=== PATIENT | male | born 1995 | race Two or more races ===

== ENCOUNTER 2021-05-30 22:46 | Emergency (ER) | payer MEDICAID ==
[~2021-05-30] VITALS: Ht 185.4 cm; Wt 79.8 kg
--- NOTE | 2021-05-30 23:07 | NUR ---
NIL X 1
[2021-05-31] MEDS ORDERED: LIDOCAINE 1%-EPI 1:100K, 20ML SQ ONE
[2021-05-31 01:07] LABS: BASOPHILS % (AUTO) 2 % (0-1); EOSINOPHILS % (AUTO) 1 % (1-7); LYMPHOCYTES % (AUTO) 30 % (22-44); MEAN CORPUSCULAR HEMOGLOBIN 29.9 pg (27.5-34.5); MEAN CORPUSCULAR HGB CONC 33.7 g/dL (33.2-36.2); MEAN PLATELET VOLUME 8.1 fL (7.4-10.4); MONOCYTES % (AUTO) 9 % (2-9); NEUTROPHILS % (AUTO) 58 % (42-75); PLATELET COUNT 255 x10^3/uL (130-400); RED BLOOD COUNT 5.75 x10^6/uL (4.38-5.82); RED CELL DISTRIBUTION WIDTH 12.4 % (9.4-14.8)
[2021-05-31 01:13] LABS: ANION GAP 13 mmol/L (5-15); CALCIUM 8.7 mg/dL (8.5-10.1); CHLORIDE 106 mmol/L (98-107); CREATININE 0.91 mg/dL (0.7-1.3)
[2021-05-31] MEDS ORDERED: HYDROcodone/APAP 5/325 TABLET PO ONE (02:00)
[2021-05-31] MEDS ORDERED: IBUPROFEN 600 MG TABLET PO ONE (02:00)
[2021-05-31] MEDS ORDERED: LIDOCAINE 1%-EPI 1:100K, 20ML ONE (02:06)
[2021-05-31] MEDS ORDERED: HYDROcodone/APAP 5/325 TABLET ONE (02:07)
[2021-05-31] MEDS ORDERED: IBUPROFEN 600 MG TABLET ONE (02:07)
[2021-05-31 03:18] VITALS: BP 137/90
--- NOTE | 2021-05-31 03:18 | NUR ---
DC EDUCATION PROVIDED, PT DEMONSTRATES UNDERSTANDING. PT AMBULATED STEADILY TO DC W RN. FAMILY TO TRANSPORT PT HOME
== END 2021-05-31 03:20 | disposition home or self-care (01) ==
LOC: ED 05-31 01:43
DX: L02.214 Cutaneous abscess of groin (principal); F17.210 Nicotine dependence, cigarettes, uncomplicated
CPT/HCPCS: 10060; 36415; 80048; 82040; 83605; 85025; 87040; 99283; 99406

== ENCOUNTER 2021-06-03 21:32 | Emergency (ER) | payer MEDICAID ==
[~2021-06-03] VITALS: Ht 185.4 cm; Wt 80.9 kg
--- NOTE | 2021-06-03 22:06 | NUR ---
PT PRESENTS TO THE ER FOR FEVER, DIARRHEA, N/V, PT STATES HE CANT HOLD ANYTHING DOWN SINCE LAST NIGHT, PT STATES HE HAD AN ABCESS DRAINED ON SATURDAY AND WAS TOLD IF HE EXPERIENCES ANY OF THE ABOVE SYMPTOMS TO COME BACK TO THE ER, PT STATES HE HAS BEEN EXPERIENCING ALL THE ABOVE STATED SYMPTOMS SINCE LAST NIGHT AND PT HAS NO APETITE AT ALL
[2021-06-03] MEDS ORDERED: SODIUM CHLORIDE 0.9% 1,000ML IVBOLUS ONE (22:30)
[2021-06-03] MEDS ORDERED: ONDANSETRON 2MG/ML, 2ML IVPush ONE (22:30)
[2021-06-03] MEDS ORDERED: ONDANSETRON 2MG/ML, 2ML ONE (22:35)
[2021-06-03 22:54] LABS: BASOPHILS % (AUTO) 0 % (0-1); EOSINOPHILS % (AUTO) 0 % (1-7); LYMPHOCYTES % (AUTO) 30 % (22-44); MEAN CORPUSCULAR HEMOGLOBIN 30.3 pg (27.5-34.5); MEAN CORPUSCULAR HGB CONC 34.9 g/dL (33.2-36.2); MEAN PLATELET VOLUME 8.2 fL (7.4-10.4); MONOCYTES % (AUTO) 12 % (2-9); NEUTROPHILS % (AUTO) 58 % (42-75); PLATELET COUNT 205 x10^3/uL (130-400); RED CELL DISTRIBUTION WIDTH 12.2 % (9.4-14.8)
[2021-06-03 23:02] LABS: ALANINE AMINOTRANSFERASE 50 U/L (12-78); ALBUMIN 3.3 g/dL (3.4-5.0); ANION GAP 7 mmol/L (5-15); CALCIUM 8.4 mg/dL (8.5-10.1); CHLORIDE 104 mmol/L (98-107); CREATININE 0.97 mg/dL (0.7-1.3)
[2021-06-03 23:04] LABS: ALKALINE PHOSPHATASE 79 U/L (45-117); BILIRUBIN,TOTAL 0.5 mg/dL (0.2-1.0); TOTAL PROTEIN 7.2 g/dL (6.4-8.2)
[2021-06-04 00:25] VITALS: BP 115/84
== END 2021-06-04 00:28 | disposition home or self-care (01) ==
LOC: ED 21:45
DX: K52.9 Noninfective gastroenteritis and colitis, unspecified (principal); R11.2 Nausea with vomiting, unspecified
CPT/HCPCS: 36415; 80053; 83690; 84145; 85025; 87040; 96361; 96374; 99283; J2405; J7030

== ENCOUNTER 2021-06-07 16:47 | Emergency (ER) | payer MEDICAID ==
[~2021-06-07] VITALS: Ht 185.4 cm; Wt 78.0 kg
[2021-06-07 17:15] VITALS: BP 138/76
[2021-06-07] MEDS ORDERED: LIDOCAINE-MPF 1%, 5ML INFIL ONE (17:30)
--- NOTE | 2021-06-07 19:09 | NUR ---
PT PRESENTS TO ER FOR AN ABCESS ON HIS RIGHT UPPER GROIN REGION, PT STATES THAT HE FELT IT GET HARD ON SATURDAY AND IT HAS BEEN DRAINING FOR A FEW HOURS NOW, PT STATES HE TOOK OUT PACKING 2 DAYS AFTER IT WAS PACKED
[2021-06-07] MEDS ORDERED: LIDOCAINE-MPF 2% ,5ML ONE (19:15)
[2021-06-07] MEDS ORDERED: LIDOCAINE-MPF 1%, 2ML ONE (19:22)
[2021-06-07] MEDS ORDERED: LIDOCAINE-MPF 1%, 5ML ONE ×2 (19:33→19:40)
[2021-06-07] MEDS ORDERED: HYDROcodone/APAP 5/325 TABLET ONE (20:06)
--- NOTE | 2021-06-07 20:21 | NUR ---
TASK RN: DC EDUCATION PROVIDED, PT DEMONSTRATES UNDERSTANDING. PT AMBUALTED STEADILY TO DC WITH RN. BROTHER TO TAKE PT HOME.
[2021-06-07] MEDS ORDERED: HYDROcodone/APAP 5/325 TABLET PO ONE (20:30)
== END 2021-06-07 20:22 | disposition home or self-care (01) ==
LOC: ED 19:38
DX: L02.214 Cutaneous abscess of groin (principal); F17.200 Nicotine dependence, unspecified, uncomplicated
CPT/HCPCS: 10060

== ENCOUNTER 2021-06-10 15:28 | Emergency (ER) | payer MEDICAID ==
[~2021-06-10] VITALS: Ht 182.9 cm; Wt 76.7 kg
[2021-06-10 19:01] VITALS: BP 129/72
== END 2021-06-10 19:03 | disposition home or self-care (01) ==
LOC: ED 18:54
DX: K12.0 Recurrent oral aphthae (principal); F17.200 Nicotine dependence, unspecified, uncomplicated
CPT/HCPCS: 99281